=== PATIENT | female | born 1970 | race American Indian/Alaskan Native ===

== ENCOUNTER 2018-01-01 00:49 | Emergency (ER) | payer SELFPAY ==
[2018-01-01] MEDS ORDERED: ASPIRIN PO ONE (01:17)
[2018-01-01 01:38] LABS: Basophils % (Auto) 0.2 % (0.0-1.8); Eosinophils # (Auto) 0.1 K/mm3 (0.0-0.4); Eosinophils % (Auto) 2.3 % (0.0-4.3); Hematocrit 35.2 % (30.3-42.9); Hemoglobin 10.9 gm/dl (10.1-14.3); Lymphocytes # (Auto) 2.4 K/mm3 (1.2-5.4); Lymphocytes % (Auto) 41.4 % (13.4-35.0); Mean Corpuscular HGB Conc 31 % (30-34); Mean Corpuscular Hemoglobin 22 pg (28-32); Mean Corpuscular Volume 71 fl (79-97); Monocytes # (Auto) 0.5 K/mm3 (0.0-0.8); Monocytes % (Auto) 8.2 % (0.0-7.3); Platelet Count 196 K/mm3 (140-440); Red Blood Count 4.98 M/mm3 (3.65-5.03); Red Cell Distribution Width 17.5 % (13.2-15.2)
[2018-01-01 01:46] LABS: BUN/Creatinine Ratio 11; Blood Urea Nitrogen 8 mg/dL (7-17); Calcium 8.5 mg/dL (8.4-10.2); Hemolysis Index 0
[2018-01-01 01:55] VITALS: BP 139/70
--- NOTE | 2018-01-01 02:05 | Emergency Department Report ---
ED Chest Pain HPI - General Chief Complaint: Chest Pain Stated Complaint: CHEST PAIN Time Seen by Provider: 01/01/18 01:47 Source: patient Mode of arrival: Ambulatory Limitations: No Limitations - History of Present Illness Initial Comments: 47-year-old female has had cough and cold symptoms for about a week she is here for evaluation of a right-sided chest pain with cough she denies any syncope denies any calf pain or swelling denies any risks for PE or DVT denies any productive sputum but denies any exertional symptoms denies any retrosternal heaviness denies any tearing pain to the back, she thinkg its a bronchtiis and "pulled something when coughing" but wanted to get checked, sx for sevderal days to a week -: days(s) Pain Location: right chest Pain Radiation: none Severity scale (0 -10): 4 Quality: sharp Improves With: nothing Worsens With: nothing Context: recent illness Other Symptoms: cough - Related Data Previous Rx's Medication Instructions Recorded Last Taken Type ALBUTEROL Inhaler [ProAir HFA 1 puff IH QID PRN #1 inha 01/01/18 Unknown Rx Inhaler] Azithromycin [Zithromax] 250 mg PO DAILY #6 tablet 01/01/18 Unknown Rx Allergies Allergy/AdvReac Type Severity Reaction Status Date / Time No Known Allergies Allergy Verified 01/01/18 01:50 Heart Score - HEART Score History: Slightly suspicious EKG: Normal Age: 45-65 Risk factors: No known risk factors Troponin: < normal limit HEART Score: 1 ED Review of Systems ROS: Stated complaint: CHEST PAIN Other details as noted in HPI Comment: All other systems reviewed and negative Constitutional: denies: diaphoresis, fever, malaise ENT: denies: dental pain, hearing loss, epistaxis Respiratory: denies: cough, orthopnea, shortness of breath, SOB with exertion, SOB at rest, stridor, wheezing Cardiovascular: chest pain. 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) - Surgical History Past Surgical History?: No - Social History Smoking Status: Former Smoker Substance Use Type: None - Medications Home Medications: Home Medications Medication Instructions Recorded Confirmed Last Taken Type ALBUTEROL Inhaler [ProAir HFA 1 puff IH QID PRN #1 inha 01/01/18 Unknown Rx Inhaler] Azithromycin [Zithromax] 250 mg PO DAILY #6 tablet 01/01/18 Unknown Rx ED Physical Exam - General Limitations: No Limitations General appearance: alert, in no apparent distress - Head Head exam: Present: atraumatic, normocephalic - Eye Eye exam: Present: normal appearance, PERRL, EOMI - ENT ENT exam: Present: normal exam - Neck Neck exam: Present: normal inspection. Absent: tenderness, meningismus - Respiratory Respiratory exam: Present: normal lung sounds bilaterally, chest wall tenderness. Absent: respiratory distress, wheezes, rales, rhonchi, stridor, accessory muscle use, decreased breath sounds, prolonged expiratory - Cardiovascular Cardiovascular Exam: Present: regular rate, normal rhythm, normal heart sounds - GI/Abdominal GI/Abdominal exam: Present: soft. Absent: distended, tenderness, guarding, rebound, rigid, mass, bruit, pulsatile mass - Extremities Exam Extremities exam: Present: normal inspection, normal capillary refill, other ( no Homans). Absent: pedal edema, joint swelling, calf tenderness - Back Exam Back exam: Absent: CVA tenderness (R), CVA tenderness (L), muscle spasm, paraspinal tenderness, vertebral tenderness - Neurological Exam Neurological exam: Present: alert, oriented X3, CN II-XII intact, normal gait. Absent: motor sensory deficit - Skin Skin exam: Absent: cyanosis, diaphoretic, erythema, urticaria, vesicles, petechiae, pallor ED Course Vital Signs 01/01/18 01/01/18 01/01/18 01:01 01:11 01:51 Temperature 98.0 F 98.0 F 98.2 F Pulse Rate 59 L 60 52 L Respiratory 18 22 Rate Blood Pressure 135/63 135/63 Blood Pressure 139/70 [Left] O2 Sat by Pulse 97 96 98 Oximetry ED Medical Decision Making - Lab Data Result diagrams: 01/01/18 01:19 01/01/18 01:19 - EKG Data EKG shows normal: sinus rhythm - EKG Data Interpretation: no acute changes 01/01/18 02:54 No acute ischemic change - Radiology Data Radiology results: report reviewed - Medical Decision Making Patient with atypical chest pain is right-sided chest pain with cough likely is related to coughing with a bronchitis. There is no calf pain or swelling she's perc negative. Troponin is negative after symptoms for up to a week. Symptoms are mostly consistent with an atypical chest wall pain with pleurisy patient will be discharged with outpatient follow-up. Pulses were equal. Chest x-ray was read as negative by the radiologist. No other emergent process that would warrant further workup or admission is identified at this time Critical care attestation.: If time is entered above; I have spent that time in minutes in the direct care of this critically ill patient, excluding procedure time. ED Disposition Clinical Impression: Atypical chest pain, Bronchitis Disposition: TO HOME OR SELFCARE Is pt being admited?: No Condition: Stable Instructions: Acute Bronchitis (ED), Chest Pain (ED) Additional Instructions: Return if new alarming symptoms or call 911 see the doctor listed Prescriptions: ALBUTEROL Inhaler [ProAir HFA Inhaler] 1 puff IH QID PRN #1 inha PRN Reason: Wheezing Azithromycin [Zithromax] 250 mg PO DAILY #6 tablet Time of Disposition: 02:59
--- NOTE | 2018-01-01 02:48 | XRay Report ---
FINAL REPORT EXAM: XR CHEST ROUTINE 2V HISTORY: wheezes TECHNIQUE: PA and lateral views of the chest were submitted. FINDINGS: The heart is mildly enlarged. The lungs are clear. There is no evidence of congestion. The bones and soft tissues do not show any acute changes. IMPRESSION: No active chest disease.
== END 2018-01-01 03:10 | disposition home or self-care (01) ==
LOC: ED 00:49
DX: J40 Bronchitis, not specified as acute or chronic (principal); I25.2 Old myocardial infarction; Z87.891 Personal history of nicotine dependence
CPT/HCPCS: 36415; 71046; 80048; 84484; 85025; 93005; 93010